=== PATIENT | male | born 1935 | race Caucasian/White ===

== ENCOUNTER 2017-04-30 11:26 | Emergency (ER) | payer MEDICARE ==
[~2017-04-30] VITALS: Ht 185.4 cm; Wt 93.6 kg
[~2017-04-30 11:26] MED LIST: ALLOPURINOL300 MG PO; ANTIVERT 25MG25 MG PO; ASPIR-LOW81 MG PO; ASPIR-LOX325 MG PO; FINASTERIDE; HYTRIN2 MG PO; INDOMETHACIN25 MG PO; LEVOTHYROXIN0.075 MG PO; LEVOXYL0.2 MG PO; MICRO-K 1010 MEQ PO; NEPHRO-VITE1 TA1 PO; NORCO 325 MG-51 TAB PO; PRILOSEC 20MG20 MG PO; SAW PALMETTO; TIAZAC360 MG PO
[2017-04-30 11:28] VITALS: TEMP 97.7
[2017-04-30 12:25] LABS: BASO # 0.1 (0.0-0.2); BASO % 0.9 % (0.0-2.0); EOS # 0.1 (0.0-0.7); EOS % 1.4 % (0-4.0); GRAN # 5.5 (1.4-6.5); GRAN % 70.9 % (42.2-75.2); HEMATOCRIT 45.9 % (42.0-52.0); HEMOGLOBIN 16.3 g/dl (13.5-18.0); LYMPH # 1.6 (1.2-3.4); LYMPH % 20.2 % (20.0-51.0); MEAN CELL VOLUME 91 fl (80.0-100.0); MEAN CORPUSCULAR HEMOGLOBIN 32 pg (27.0-31.0); MEAN CORPUSCULAR HGB CONC 36 g/dl (33.0-37.0); MEAN PLATELET VOLUME 10.1 fl (7.4-10.4); MONO # 0.5 (0.1-0.6); MONO % 6.2 % (1.7-9.3); PLATELET COUNT 144 K/mm3 (130-400); RED BLOOD COUNT 5.03 M/mm3 (4.20-5.60); REDCELL DISTRIBUTION WIDTH-CV 12.6 % (11.5-14.5); WHITE BLOOD COUNT 7.8 K/mm3 (4.8-10.8)
[2017-04-30 12:38] LABS: ADJUSTED CALCIUM 9.6 mg/dL (8.4-10.2); ALANINE AMINOTRANSFERASE 25 U/L (21-72); ALBUMIN 4.2 gm/dL (3.5-5.0); ALKALINE PHOSPHATASE 72 U/L (50-136); ANION GAP 10 mmol/L (7-16); BILIRUBIN,TOTAL 1.5 mg/dL (0.0-1.0); BLOOD UREA NITROGEN 16 mg/dL (9-20); CALCIUM 9.8 mg/dL (8.4-10.2); CARBON DIOXIDE 23 mmol/L (22-30); CHLORIDE 103 mmol/L (98-107); CREATININE, serum 0.76 mg/dL (0.66-1.25); GLUCOSE 99 mg/dL (74-106); LIPASE 55 U/L (23-300); POTASSIUM 4.4 mmol/L (3.4-5.0); SODIUM 136 mmol/L (137-145); TOTAL PROTEIN 7.2 gm/dL (6.4-8.2)
[2017-04-30 12:50] LABS: B-TYPE NATRIURETIC PEPTIDE 108 pg/mL (0-450)
[2017-04-30 12:51] LABS: TROPONIN-I < 0.012 ng/mL (0.000-0.034)
[2017-04-30] MEDS ORDERED: PROSCAR 5MG5 MG PO ×2 (13:05→16:01)
[2017-04-30 15:07] LABS: THYROID STIMULATING HORMONE 0.118 uIU/mL (0.465-4.680)
[2017-04-30] MEDS ORDERED: TIAZAC360 MG PO (16:00)
[2017-04-30] MEDS ORDERED: ZYLOPRIM 300MG300 MG PO (16:00)
[2017-04-30] MEDS ORDERED: MOTRIN 600600 MG/TAB PO (16:01)
[2017-04-30] MEDS ORDERED: NORCO 325 MG-51 TAB PO (16:01)
[2017-04-30] MEDS ORDERED: SYNTHROID 0.10.15 MG PO (16:02)
[2017-04-30] MEDS ORDERED: ZESTRIL 10MG10 MG PO (16:03)
[2017-04-30] MEDS ORDERED: PRILOSEC 20MG20 MG PO (16:03)
[2017-04-30] MEDS ORDERED: K-DUR20 MEQ PO (16:04)
[2017-04-30] MEDS ORDERED: TIAZAC180 MG PO (16:20)
[2017-04-30] MEDS ORDERED: ANTIVERT 25MG25 MG PO (16:20)
[2017-04-30 16:44] VITALS: BP 150/90; PULSE 53
== END 2017-04-30 16:47 | disposition home or self-care (01) ==
LOC: COL.ER 11:26
PROVIDERS: Emergency Medicine
DX: H81.10 Benign paroxysmal vertigo, unspecified ear (principal); R00.1 Bradycardia, unspecified; I10 Essential (primary) hypertension; E03.9 Hypothyroidism, unspecified
CPT/HCPCS: Q9967

== ENCOUNTER 2018-11-11 08:32 | Emergency (ER) | payer MEDICARE ==
[~2018-11-11] VITALS: Ht 182.9 cm; Wt 95.5 kg
[~2018-11-11 08:32] MED LIST changes: +K-DUR20 MEQ PO; +MOTRIN 600600 MG/TAB PO; +PROSCAR 5MG5 MG PO; +SYNTHROID 0.10.15 MG PO; +TIAZAC180 MG PO; +ZESTRIL 10MG10 MG PO; +ZYLOPRIM 300MG300 MG PO
[2018-11-11 08:33] VITALS: TEMP 99.2
[2018-11-11 09:08] LABS: COLLECTION METHOD CLEAN CATCH
[2018-11-11 09:13] LABS: PH 7 (5-8); SQUAMOUS EPITHELIAL 0-2 /hpf; URINE APPEARANCE Clear; URINE BACTERIA None Seen /hpf; URINE BILIRUBIN Negative (NEGATIVE); URINE BLOOD Negative (NEGATIVE); URINE COLOR Yellow; URINE GLUCOSE Negative (NEGATIVE); URINE KETONE Negative (NEGATIVE); URINE LEUKOCYTE ESTERASE Negative (NEGATIVE); URINE NITRATE Negative (NEGATIVE); URINE PROTEIN(semi-quant) Negative (NEGATIVE); URINE RBC 0-2 /hpf; URINE UROBILINOGEN Negative (NEGATIVE)
[2018-11-11 09:40] LABS: BASO # 0.1 (0.0-0.2); BASO % 0.5 % (0.0-2.0); EOS % 0.1 % (0-4.0); GRAN # 8.3 (1.4-6.5); GRAN % 84.1 % (42.2-75.2); HEMATOCRIT 41.5 % (42.0-52.0); HEMOGLOBIN 14.4 g/dl (13.5-18.0); LYMPH % 9.9 % (20.0-51.0); MEAN CELL VOLUME 91 fl (80.0-100.0); MEAN CORPUSCULAR HEMOGLOBIN 31 pg (27.0-31.0); MEAN CORPUSCULAR HGB CONC 35 g/dl (33.0-37.0); MONO # 0.5 (0.1-0.6); PLATELET COUNT 213 K/mm3 (130-400); RED BLOOD COUNT 4.58 M/mm3 (4.20-5.60); REDCELL DISTRIBUTION WIDTH-CV 12.9 % (11.5-14.5)
[2018-11-11 09:51] LABS: ALANINE AMINOTRANSFERASE 17 U/L (21-72); ALBUMIN 4.1 gm/dL (3.5-5.0); ALKALINE PHOSPHATASE 72 U/L (50-136); ANION GAP 9 mmol/L (7-16); AST,SGOT 19 U/L (15-37); BILIRUBIN,TOTAL 1.5 mg/dL (0.0-1.0); BLOOD UREA NITROGEN 21 mg/dL (9-20); CALCIUM 9.3 mg/dL (8.4-10.2); CARBON DIOXIDE 25 mmol/L (22-30); CHLORIDE 104 mmol/L (98-107); CREATININE, serum 0.93 (0.66-1.25); GLUCOSE 116 mg/dL (74-106); POTASSIUM 4.1 mmol/L (3.4-5.0); SODIUM 139 mmol/L (137-145); TOTAL PROTEIN 7.2 gm/dL (6.4-8.2)
[2018-11-11 10:05] LABS: TROPONIN-I < 0.012 ng/mL (0.000-0.035)
[2018-11-11 12:18] VITALS: BP 168/97; PULSE 56
== END 2018-11-11 12:40 | disposition home or self-care (01) ==
LOC: COL.ER 08:32
PROVIDERS: Emergency Medicine
DX: R41.0 Disorientation, unspecified (principal); I10 Essential (primary) hypertension; E03.9 Hypothyroidism, unspecified; M19.90 Unspecified osteoarthritis, unspecified site
CPT/HCPCS: J2405; J7030

== ENCOUNTER 2018-12-27 10:38 | Observation (INO) | payer MEDICARE ==
[~2018-12-27] VITALS: Ht 185.4 cm; Wt 93.3 kg
[~2018-12-27 10:38] MED LIST changes: -SYNTHROID 0.10.15 MG PO; +SYNTHROID0.175 MG PO
[2018-12-27] MEDS ORDERED: COZAAR 25MG25 MG/TAB PO (11:04)
[2018-12-27] MEDS ORDERED: ARICEPT 5MG PO (11:04)
[2018-12-27] MEDS ORDERED: B-121000 MCG PO (11:05)
[2018-12-27] MEDS ORDERED: VITAMIN D 1001000 IU (11:05)
[2018-12-27] MEDS ORDERED: VITAMIN B COMPL1 T16 (11:05)
[2018-12-27 11:19] LABS: BASO # 0.1 (0.0-0.2); BASO % 0.9 % (0.0-2.0); EOS # 0.2 (0.0-0.7); EOS % 2.6 % (0-4.0); GRAN # 4.8 (1.4-6.5); HEMATOCRIT 43.2 % (42.0-52.0); HEMOGLOBIN 15.1 g/dl (13.5-18.0); LYMPH % 14.4 % (20.0-51.0); MEAN CELL VOLUME 90 fl (80.0-100.0); MEAN CORPUSCULAR HEMOGLOBIN 32 pg (27.0-31.0); MEAN CORPUSCULAR HGB CONC 35 g/dl (33.0-37.0); MONO # 0.7 (0.1-0.6); MONO % 9.8 % (1.7-9.3); PLATELET COUNT 203 K/mm3 (130-400); REDCELL DISTRIBUTION WIDTH-CV 12.8 % (11.5-14.5)
[2018-12-27 11:33] LABS: ALANINE AMINOTRANSFERASE 16 U/L (21-72); ALBUMIN 3.8 gm/dL (3.5-5.0); ALKALINE PHOSPHATASE 77 U/L (50-136); ANION GAP 10 mmol/L (7-16); AST,SGOT 19 U/L (15-37); BLOOD UREA NITROGEN 21 mg/dL (9-20); CALCIUM 9.3 mg/dL (8.4-10.2); CARBON DIOXIDE 23 mmol/L (22-30); CHLORIDE 106 mmol/L (98-107); CREATININE, serum 0.87 (0.66-1.25); GLUCOSE 131 mg/dL (74-106); MAGNESIUM 2.1 mg/dL (1.6-2.3); PHOSPHOROUS 2.8 mg/dL (2.5-4.5); POTASSIUM 3.9 mmol/L (3.4-5.0); SODIUM 139 mmol/L (137-145)
[2018-12-27 11:47] LABS: TROPONIN-I < 0.012 ng/mL (0.000-0.035)
[2018-12-27 13:53] VITALS: BP 144/85; PULSE 63; TEMP 97.8
[2018-12-27 13:58] VITALS: BP 144/85; PULSE 63; TEMP 97.8
[2018-12-27 15:40] VITALS: BP 132/82; PULSE 60; TEMP 98.2
[2018-12-27 16:54] VITALS: BP 132/82; PULSE 60; TEMP 98.2
--- NOTE | 2018-12-27 17:10 | NUR ---
Pt up to unit from ED. Pt reports dizziness when he tilts his head foward. Pt had intermittent episodes of AFib down in the ED. Pt has telemetry in place and running NSR. Pt rates pain 3/10 in back/ankles/knees mostly related to arthritis per pt. Pt has frederick prominence enlarged on left ankle and pt reports may have been broken or it is more gout related but unable to get a clear explanation. Pt IV patent from ED and no redness or infiltration noted. Pt has call light in reacha and denies SOB or chest pain. Pt calls for help to get up.
[2018-12-27 18:55] VITALS: BP 112/75; PULSE 69; TEMP 98.5
--- NOTE | 2018-12-27 19:20 | NUR ---
Pt report given to Adrianne JOHNSTON.
--- NOTE | 2018-12-27 19:30 | NUR ---
Patient report received from PRESTON Iglesias at shift change. Upon assessment patient is resting comfortably in bed watching tv. Patient is alert and oriented x 3. Denies pain or n/v. Patient denies having any dizziness or palpations at this time. No other needs reported/observed.
[2018-12-27 23:12] VITALS: BP 128/75; PULSE 65; TEMP 98.5
[2018-12-28] VITALS (8 sets, daily range): BP systolic 114–158; BP diastolic 69–88; PULSE 58–74; TEMP 97.5–98.5
--- NOTE | 2018-12-28 05:41 | NUR ---
Patient report given to PRESTON Rangel. Patient has rested comfortably throughout the night. Denies any dizziness or palpatations in night.
--- NOTE | 2018-12-28 11:44 | NUR ---
Pt was seen by Selvin with physical therapy and participated in physical manueuvers to decrease vertigo and Selvin reported after second treatment pt had shown some progress with decreasing his vertigo.
--- NOTE | 2018-12-28 13:41 | NUR ---
Plan: Plan to return home with Mirta as care support. Assess: Patient reports that he is fairly independent but also cares for him. Pt indicated that there is no Adv-dir and PCP is Dr. Babcock. Patient denies any DME's use reg-has a cane but does not use. Patient decline HHS. Action: Family will transport home. No addtional needs noted.
--- NOTE | 2018-12-28 14:10 | NUR ---
Pt sitting at side of bed and reports feeling good right now "better than yesterday". Pt seen by and new orders given. Pt to have MRI and cardio consult 12/29/18. Pt denies SOB or chest pain. Pt remains NSR. Dr. Sher explained that there is no evidence of pt in AFIB while in ER pt was tachycardic per EKG. Pt IV patent and no redness or infiltration noted. Pt started on Losartan per Dr. Santos for heightened BP. Pt has call light in reach and spouse at bedside.
--- NOTE | 2018-12-28 19:41 | NUR ---
pt report given to Ambar martin
--- NOTE | 2018-12-28 20:10 | NUR ---
Shift assessment complete. Pt resting in bed, awake, a&o at this time, cooperative c cares. Pt denies pain or any other c/o. INT patent. Tele in place. Pt denies needs. Call light in reach, bed alarm on. Will continue to monitor.
[2018-12-29 00:22] VITALS: BP 104/64; PULSE 67; TEMP 98.8
[2018-12-29 05:16] VITALS: BP 136/80; PULSE 64; TEMP 98.3
--- NOTE | 2018-12-29 05:56 | NUR ---
Pt resting in bed, condition unchanged. Pt has rested well this shift c very few needs. C/o "arthritis" pain this am, provided c PRN Motrin per pt req. Pt denies any other c/o or needs. Call light in reach.
[2018-12-29 07:49] VITALS: BP 128/70; PULSE 62; TEMP 98
--- NOTE | 2018-12-29 09:36 | NUR ---
Assessment completed, alert/oriented, vital signs stable, denies pain or discomfort, lungs CTA/ no resp.difficulty, heart RRR/distal pulses are palpalbe, denies any more dizziness or vertigo with position changes, he feels like PT exercises have helped him, Cardiology consulted and have ordered ECHO, he will also have brain MRI/ MRA neck, possible discharge later today pending test results
--- NOTE | 2018-12-29 11:33 | NUR ---
First visit from the petrographer. No needs right now.
[2018-12-29 11:51] VITALS: BP 122/78; PULSE 58; TEMP 98.1
--- NOTE | 2018-12-29 15:34 | NUR ---
Discharge instructions reviewed with the patient, instructed to follow up with PCP/ENT/Cardiology/Neurology as we have scheduled for him, instructed to continue previous home meds and that their are NO new meds or med changes, removed his IV and tele, he is leaving with his , VENEER STOCK GRADER escorted them out the door
== END 2018-12-29 15:45 | disposition home or self-care (01) ==
LOC: COL.ER 10:38 → MEDICAL 12:16
PROVIDERS: Emergency Medicine; ADMIT Internal Medicine
DX: R42 Dizziness and giddiness (principal); I47.1 Supraventricular tachycardia; Z86.73 Personal history of transient ischemic attack (TIA), and cerebral infarction without residual deficits; I10 Essential (primary) hypertension; F03.90 Unspecified dementia, unspecified severity, without behavioral disturbance, psychotic disturbance, mood disturbance, and anxiety; N40.0 Benign prostatic hyperplasia without lower urinary tract symptoms; M10.9 Gout, unspecified; J44.9 Chronic obstructive pulmonary disease, unspecified; M46.82 Other specified inflammatory spondylopathies, cervical region; M13.862 Other specified arthritis, left knee; M13.861 Other specified arthritis, right knee; M13.872 Other specified arthritis, left ankle and foot; M13.871 Other specified arthritis, right ankle and foot; Z92.3 Personal history of irradiation; E89.0 Postprocedural hypothyroidism
CPT/HCPCS: A9585; G0378

== ENCOUNTER 2019-03-22 10:01 | Emergency (ER) | payer MEDICARE ==
[~2019-03-22] VITALS: Ht 185.4 cm; Wt 95.9 kg
[~2019-03-22 10:01] MED LIST changes: +ARICEPT 5MG PO; +B-121000 MCG PO; +COZAAR 25MG25 MG/TAB PO; +VITAMIN B COMPL1 T16; +VITAMIN D 1001000 IU
[2019-03-22 10:02] VITALS: TEMP 97.7
[2019-03-22 10:30] VITALS: BP 148/85
[2019-03-22 10:32] LABS: COLLECTION METHOD CLEAN CATCH
[2019-03-22 10:37] LABS: BASO # 0.1 (0.0-0.2); BASO % 0.9 % (0.0-2.0); EOS # 0.2 (0.0-0.7); EOS % 1.6 % (0-4.0); GRAN % 76.7 % (42.2-75.2); HEMATOCRIT 42.2 % (42.0-52.0); HEMOGLOBIN 14.4 g/dl (13.5-18.0); LYMPH % 10.7 % (20.0-51.0); MEAN CELL VOLUME 90 fl (80.0-100.0); MEAN CORPUSCULAR HEMOGLOBIN 31 pg (27.0-31.0); MEAN CORPUSCULAR HGB CONC 34 g/dl (33.0-37.0); MEAN PLATELET VOLUME 9.9 fl (7.4-10.4); MONO # 0.9 (0.1-0.6); MONO % 9.7 % (1.7-9.3); PLATELET COUNT 194 K/mm3 (130-400); RED BLOOD COUNT 4.67 M/mm3 (4.20-5.60); REDCELL DISTRIBUTION WIDTH-CV 13.3 % (11.5-14.5)
[2019-03-22 10:41] LABS: MUCOUS Present /lpf; PH 6 (5-8); SQUAMOUS EPITHELIAL 0-2 /hpf; URINE APPEARANCE Clear; URINE BACTERIA None Seen /hpf; URINE BILIRUBIN Negative (NEGATIVE); URINE BLOOD Negative (NEGATIVE); URINE COLOR Yellow; URINE GLUCOSE Negative (NEGATIVE); URINE KETONE Negative (NEGATIVE); URINE LEUKOCYTE ESTERASE Negative (NEGATIVE); URINE NITRATE Negative (NEGATIVE); URINE PROTEIN(semi-quant) Negative (NEGATIVE); URINE RBC 0-2 /hpf; URINE UROBILINOGEN Negative (NEGATIVE)
[2019-03-22 10:46] LABS: CALCIUM 9.1 mg/dL (8.4-10.2); CREATININE, serum 1.01 (0.66-1.25); POTASSIUM 3.7 mmol/L (3.4-5.0)
[2019-03-22 12:12] VITALS: PULSE 67
== END 2019-03-22 12:09 | disposition home or self-care (01) ==
LOC: COL.ER 10:01
PROVIDERS: Emergency Medicine
DX: S39.012A Strain of muscle, fascia and tendon of lower back, initial encounter (principal); W19.XXXA Unspecified fall, initial encounter; Y92.009 Unspecified place in unspecified non-institutional (private) residence as the place of occurrence of the external cause
CPT/HCPCS: J1885; J7030; Q9967

== ENCOUNTER → 2019-04-09 | Outpatient (CLI) | payer MEDICARE | LOC: COL.RAD 09:00 | DX: M47.816 Spondylosis without myelopathy or radiculopathy, lumbar region (principal); M43.17 Spondylolisthesis, lumbosacral region; M48.07 Spinal stenosis, lumbosacral region; Z91.81 History of falling ==

== ENCOUNTER 2019-06-09 12:39 | Inpatient (IN) | payer MEDICARE ==
[~2019-06-09] VITALS: Ht 185.4 cm; Wt 93.4 kg
[~2019-06-09 12:39] MED LIST changes: -VITAMIN B COMPL1 T16; +VITAMIN B COMPL1 T16 PO; -VITAMIN D 1001000 IU; +VITAMIN D 1001000 IU PO
[2019-06-17] VITALS (10 sets, daily range): BP systolic 130–149; BP diastolic 59–89; PULSE 7–80; TEMP 97.9–98
--- NOTE | 2019-06-17 09:30 | NUR ---
The patient ambulated back to [place] [facility] independently using a steady gait and appeared to tolerate the activity well. The patient appears alert and oriented at this time. Consent signed with verbalized understanding of scheduled procedure and consent for blood or blood products. Vital signs obtained. Heart Reg. Lungs clear. Bowel sounds audible. The patient's was brought back to be at his bedside. Call light is within reach. The patient denies any needs at this time. Will continue to monitor the patient.
[2019-06-17] MEDS ORDERED: COZAAR100 MG PO (09:36)
[2019-06-17] MEDS ORDERED: ANTIVERT 25MG25 MG PO (09:37)
[2019-06-17] MEDS ORDERED: NORVASC2.5 MG PO (09:40)
[2019-06-17] MEDS ORDERED: LOPRESSOR 225 MG/TAB PO (09:41)
[2019-06-17] MEDS ORDERED: PROAIR HFA0.09 MG/AC IH (09:42)
--- NOTE | 2019-06-17 16:17 | NUR ---
PT TO ROOM 344 PER BED WITH REPORT FROM LEONOR JOHNSTON PACU @1540. PT IS DROWSEY BUT AROUSABLE. LUNGS COARSE. HYPO BOWEL SOUNDS. 5 ROBOTIC INCISIONS WITH CHRISTOPHER SET AND MIDLINE WITH MEIPAD. IV TO PUMP.
[2019-06-18] VITALS (8 sets, daily range): BP systolic 108–123; BP diastolic 58–67; PULSE 53–65; TEMP 97.5–98.9
--- NOTE | 2019-06-18 01:53 | NUR ---
Patient has rested well throughout the night. Noted to have 5 lap sites with swiftset, and a transverse incision to lower abdomen covered with gauze. Patient states his pain is minimal and has been tolerating without PRN pain medication. Fernandes draining clear yellow urine. Patient tolerating PO fluids. INT to right forearm. Will continue to monitor patient.
[2019-06-18 06:19] LABS: BASO % 0.2 % (0.0-2.0); GRAN # 10.1 (1.4-6.5); GRAN % 84.2 % (42.2-75.2); LYMPH # 1.1 (1.2-3.4); LYMPH % 8.8 % (20.0-51.0); MEAN CELL VOLUME 90 fl (80.0-100.0); MEAN CORPUSCULAR HEMOGLOBIN 29 pg (27.0-31.0); MEAN CORPUSCULAR HGB CONC 32 g/dl (33.0-37.0); MEAN PLATELET VOLUME 10.1 fl (7.4-10.4); MONO # 0.8 (0.1-0.6); MONO % 6.3 % (1.7-9.3); PLATELET COUNT 257 K/mm3 (130-400); RED BLOOD COUNT 3.82 M/mm3 (4.20-5.60); REDCELL DISTRIBUTION WIDTH-CV 13.3 % (11.5-14.5)
[2019-06-18 06:21] LABS: HEMATOCRIT 34.2 % (42.0-52.0)
[2019-06-18 06:30] LABS: CALCIUM 8.6 mg/dL (8.4-10.2); CREATININE, serum 0.98 (0.66-1.25); POTASSIUM 4.6 mmol/L (3.4-5.0)
--- NOTE | 2019-06-18 09:30 | NUR ---
BRENDA and wastewater operator met with the patient to discuss discharge plan. The patient lives outside of [place] with his , Tere (ph#[phone]). He reports independence with ADLs and has a cane. The patient's PCP is Dr. Trey Babcock and he receives his medications at [facility]. He reports no difficulties obtaining his meds. The patient does not have advanced directives completed, but he was interested in obtaining a form for DPOA-HC. BRENDA provided. The patient plans to return home with his upon discharge. No additional needs at this time.
--- NOTE | 2019-06-18 09:33 | NUR ---
First visit from the radio repairer domestic. No needs right now.
--- NOTE | 2019-06-18 18:13 | NUR ---
Patient was resting in room when arrived. Up and ambulated 100 ft around unit. no complaints of pain. has been in room all afternoon. Visitors arrived at 1700. Reported off to Patricia JOHNSTON.
--- NOTE | 2019-06-18 19:34 | NUR ---
Patient has been doing well today. He has ambulated in the hallways. Denies pain and nausea. 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 He is tolerating diet well. he has voided once this afternoon and knows we need to measure his urine output. No other changes at this time. He ambulated 3 times today and made several laps. Call light within reach.
--- NOTE | 2019-06-19 02:30 | NUR ---
Patient has rested well throughout the night. Patient states pain is well controlled with current regimen. No PRN medication required this shift. Patient up with stand-by assist to restroom. Noted to have incontinent loose stool this shift. Pamela-care provided. Will continue to provide incontinent care and monitor.
[2019-06-19 05:13] VITALS: BP 115/68; PULSE 58; TEMP 98.6
[2019-06-19 07:45] VITALS: BP 119/70; PULSE 62; TEMP 97.8
--- NOTE | 2019-06-19 08:20 | NUR ---
Pt sitting on edge of bed stated he is waiting for breakfast. VSS. No sign of distress. Call light within reach.
[2019-06-19 10:14] LABS: HEMATOCRIT 34.5 % (42.0-52.0)
[2019-06-19 12:01] VITALS: BP 117/66; PULSE 57; TEMP 98.8
[2019-06-19 15:19] VITALS: BP 128/67; PULSE 71; TEMP 97.6
--- NOTE | 2019-06-19 18:00 | NUR ---
Patient has been doing well today. He has been up ambulating in the hallways. Denies pain and nausea. He is tolerating general diet well. Offered patient a shower but he did not want one today. He did get cleaned up with the student though. His is at bedside. No other changes at this time. Call light within reach.
[2019-06-19 20:00] VITALS: BP 127/72; PULSE 71; TEMP 98.7
--- NOTE | 2019-06-19 21:00 | NUR ---
Patient takes HS meds without problem. Lap sites to abdomen glued and dry. Reports having stools and urinating without problem.
[2019-06-20 00:19] VITALS: BP 121/69; PULSE 72; TEMP 99
--- NOTE | 2019-06-20 02:45 | NUR ---
Takes scheduled ES Tylenol at this time. No concerns offered at this time.
[2019-06-20 04:07] VITALS: BP 123/72; PULSE 67; TEMP 98.3
--- NOTE | 2019-06-20 06:00 | NUR ---
AM MED GIVEN AT THIS TIME. PATIENT HOPING TO GO HOME TODAY.
[2019-06-20 08:19] VITALS: BP 117/75; PULSE 69; TEMP 98.3
--- NOTE | 2019-06-20 08:34 | NUR ---
Pt doing well this morning. He is sitting up and has completed his breakfast. Minimal pain complaints at this time. He is hoping to go home today. He is independent in his room. No needs at this time, will continue to monitor.
[2019-06-20] MEDS ORDERED: NORCO 325 MG-51 TAB PO (10:12)
--- NOTE | 2019-06-20 13:40 | NUR ---
Pt son and have arrived. Reviewed discharge instructions with them at this time. All questions answered. INT removed from left wrist. Pt escorted out at this time
== END 2019-06-20 13:41 | disposition home or self-care (01) | DRG 330 ==
LOC: INPTSU 06-17 08:33 → SURG 06-17 11:30
PROVIDERS: ADMIT Surgery
PROC: 0DNU4ZZ Release Omentum, Percutaneous Endoscopic Approach (ICD-10-PCS; 2019-06-17)
PROC: 8E0W4CZ Robotic Assisted Procedure of Trunk Region, Percutaneous Endoscopic Approach (ICD-10-PCS; 2019-06-17)
PROC: 0DTF4ZZ Resection of Right Large Intestine, Percutaneous Endoscopic Approach (ICD-10-PCS; principal; 2019-06-17 11:30)
DX: C18.3 Malignant neoplasm of hepatic flexure (principal); C18.7 Malignant neoplasm of sigmoid colon
CPT/HCPCS: A4314; A9284; J0330; J0690; J1100; J1650; J1885; J2405; J2704; J3010; J7120

== ENCOUNTER → 2019-06-11 | Outpatient (CLI) | payer MEDICARE ==
[~2019-06-11] MED LIST changes: +VITAMIN B COMPL1 T16; -VITAMIN B COMPL1 T16 PO; +VITAMIN D 1001000 IU; -VITAMIN D 1001000 IU PO
== END ==
LOC: COL.RAD 09:35
DX: C18.9 Malignant neoplasm of colon, unspecified (principal); J43.9 Emphysema, unspecified; Z98.890 Other specified postprocedural states
CPT/HCPCS: Q9967

== ENCOUNTER 2019-07-15 17:57 | Inpatient (IN) | payer MEDICARE ==
[~2019-07-15] VITALS: Ht 182.9 cm; Wt 88.9 kg
[~2019-07-15 17:57] MED LIST changes: +COZAAR100 MG PO; +LOPRESSOR 225 MG/TAB PO; +NORVASC2.5 MG PO; +PROAIR HFA0.09 MG/AC IH; -VITAMIN B COMPL1 T16; +VITAMIN B COMPL1 T16 PO; -VITAMIN D 1001000 IU; +VITAMIN D 1001000 IU PO
[2019-07-15 18:41] LABS: BASO # 0.2 (0.0-0.2); EOS # 0.1 (0.0-0.7); EOS % 0.7 % (0-4.0); GRAN # 12.9 (1.4-6.5); GRAN % 83.1 % (42.2-75.2); HEMATOCRIT 44.1 % (42.0-52.0); HEMOGLOBIN 14.2 g/dl (13.5-18.0); LYMPH # 1.5 (1.2-3.4); LYMPH % 9.7 % (20.0-51.0); MEAN CELL VOLUME 87 fl (80.0-100.0); MEAN CORPUSCULAR HEMOGLOBIN 28 pg (27.0-31.0); MEAN CORPUSCULAR HGB CONC 32 g/dl (33.0-37.0); MEAN PLATELET VOLUME 10.1 fl (7.4-10.4); MONO # 0.8 (0.1-0.6); PLATELET COUNT 323 K/mm3 (130-400); RED BLOOD COUNT 5.06 M/mm3 (4.20-5.60); REDCELL DISTRIBUTION WIDTH-CV 13.9 % (11.5-14.5)
[2019-07-15 18:47] LABS: PROTHROMBIN TIME 11.6 SECONDS (9.7-12.8)
[2019-07-15 18:50] LABS: PARTIAL THROMBOPLASTIN TIME 28.7 SECONDS (26.0-37.0)
[2019-07-15 18:54] LABS: ALBUMIN 4.8 gm/dL (3.5-5.0); CALCIUM 9.9 mg/dL (8.4-10.2); CREATININE, serum 1.07 (0.66-1.25); POTASSIUM 4.3 mmol/L (3.4-5.0); TOTAL PROTEIN 8.6 gm/dL (6.4-8.2)
[2019-07-15 19:14] LABS: TROPONIN-I 0.362 ng/mL (0.000-0.035)
--- NOTE | 2019-07-15 21:05 | NUR ---
Patient arrived to room via stretcher; alert and oriented. Able to transfer from ER to ICU bed with stand by assist only. Shortness of breath reported with exertion but denies with rest. Attached to all monitors; 02 94% on 3L.
[2019-07-15 21:35] VITALS: BP 115/87; PULSE 98; TEMP 97.5
[2019-07-15 22:20] LABS: TROPONIN-I 3 HR POST INITIAL 0.489 ng/mL (0.000-0.034)
[2019-07-15 22:30] LABS: TSH w REFLEX 1.37 uIU/mL (0.465-4.680)
[2019-07-15] MEDS ORDERED: NAMENDA 10MG TA10 MG PO (23:23)
[2019-07-15] MEDS ORDERED: PEPCID 20MG TAB20 MG PO (23:37)
[2019-07-15] MEDS ORDERED: FLOVENT 110MCG7.9 GM IH (23:39)
[2019-07-16] VITALS (626 sets, daily range): BP systolic 110–135; BP diastolic 74–91; PULSE 74–82; TEMP 97.4–98.4; O2SAT 75–98
[2019-07-16] MEDS ORDERED: TYLENOL 325MG325 MG PO (00:09)
[2019-07-16 01:37] LABS: HEMATOCRIT 35.4 % (42.0-52.0); HEMOGLOBIN 11.7 g/dl (13.5-18.0)
--- NOTE | 2019-07-16 02:18 | NUR ---
FLOVENT GIVEN BID AT 0700 AND 1900. THERFORE UNTIL PHARMACY CHANGES TIME OF FLOVENT 110 INHALER TIMES IT LOKS IF A TREATMENT WAS MISSED AT 0052. MEDICATION IS NOT DUE AT THIS TIME. PT IS IN NO DISTRESS AT THIS TIME
--- NOTE | 2019-07-16 03:00 | NUR ---
Patient resting in bed with eyes shut; no concerns at this time.
[2019-07-16 06:08] LABS: BASO # 0.1 (0.0-0.2); BASO % 1.1 % (0.0-2.0); EOS # 0.2 (0.0-0.7); EOS % 1.6 % (0-4.0); GRAN # 7.5 (1.4-6.5); GRAN % 71.3 % (42.2-75.2); HEMOGLOBIN 11.4 g/dl (13.5-18.0); LYMPH # 1.7 (1.2-3.4); LYMPH % 15.9 % (20.0-51.0); MEAN CELL VOLUME 87 fl (80.0-100.0); MEAN CORPUSCULAR HEMOGLOBIN 28 pg (27.0-31.0); MEAN CORPUSCULAR HGB CONC 33 g/dl (33.0-37.0); MEAN PLATELET VOLUME 10.3 fl (7.4-10.4); MONO % 9.7 % (1.7-9.3); PLATELET COUNT 252 K/mm3 (130-400); RED BLOOD COUNT 4.03 M/mm3 (4.20-5.60); REDCELL DISTRIBUTION WIDTH-CV 13.9 % (11.5-14.5)
[2019-07-16 06:13] LABS: HEMATOCRIT 35.1 % (42.0-52.0)
[2019-07-16 06:25] LABS: CALCIUM 8.9 mg/dL (8.4-10.2); CREATININE, serum 0.92 (0.66-1.25); POTASSIUM 4.2 mmol/L (3.4-5.0)
[2019-07-16 06:51] LABS: TROPONIN-I 0.408 ng/mL (0.000-0.035)
--- NOTE | 2019-07-16 07:11 | NUR ---
Hospitalist not notified of critical troponin as trending down.
--- NOTE | 2019-07-16 10:01 | NUR ---
Initial visit; Patient thanked Gre[employer] Oiler for looking in on him and offering God's blessings. Patient has family who will contact his taoism family.
[2019-07-16 12:53] LABS: HEMATOCRIT 37.8 % (42.0-52.0); HEMOGLOBIN 12.1 g/dl (13.5-18.0)
--- NOTE | 2019-07-16 16:47 | NUR ---
Medical Office Technologist met with patient and patient's , Tere (ph#[phone]) to discuss discharge planning. Patient lives outside of [place] with his . Patient sees Dr. Babcock for primary care and obtains medications from [facility] with no difficulties. Patient uses a cane and reports independence with ADLS. Patient does not have Advance Directives and wanted to set up DPOA-HC. SW assisted patient in setting up DPOA-HC and patient designated his Tere and son, Yoandy. BRENDA and RNDanelle provided witness signature. BRENDA provided original and copies to patient and placed copy in chart. SW to continue to follow.
[2019-07-16 18:37] LABS: HEMATOCRIT 37.5 % (42.0-52.0)
--- NOTE | 2019-07-16 21:00 | NUR ---
Assessment complete; Patient alert and follows basic commands appropriately, however is not oriented to time or place. Unable to re-call where he is or why he was hospitalized. Patient had been able to answer these questions appropriately when admitted over night. Neuro checks within normal limits. Called to ask if he has confusion sometimes . confimed that he does have episodes of confusion at times and will not be able to answer questions appropriatly or at all sometimes. Attempted to re-orient patient at this time. Will continue to monitor.
[2019-07-17] VITALS (636 sets, daily range): BP systolic 117–137; BP diastolic 79–87; PULSE 67–100; TEMP 97.4–98.4; O2SAT 81–100
--- NOTE | 2019-07-17 02:00 | NUR ---
Resting in bed at this time. Patient confused and unable to tell nurse why he came to the hospital. Confusion has not increased or changed during shift. Attempted to re-orient at this time. Able to follow all commands and no neurological deficits noted. Will continue to monitor.
[2019-07-17 03:21] LABS: COLLECTION METHOD CLEAN CATCH
[2019-07-17 03:26] LABS: MUCOUS Present /lpf; PH 5 (5-8); SQUAMOUS EPITHELIAL None Seen /hpf; URINE APPEARANCE Clear; URINE BACTERIA None Seen /hpf; URINE BILIRUBIN Negative (NEGATIVE); URINE BLOOD Negative (NEGATIVE); URINE COLOR Yellow; URINE GLUCOSE Negative (NEGATIVE); URINE KETONE Negative (NEGATIVE); URINE LEUKOCYTE ESTERASE Negative (NEGATIVE); URINE NITRATE Negative (NEGATIVE); URINE PROTEIN(semi-quant) Negative (NEGATIVE); URINE RBC 0-2 /hpf; URINE UROBILINOGEN Negative (NEGATIVE)
--- NOTE | 2019-07-17 05:45 | NUR ---
Hospitalist updated regarding patients confusion this shift. Order obtained for head CT.
[2019-07-17 06:20] LABS: HEMOGLOBIN 10.4 g/dl (13.5-18.0); MEAN CELL VOLUME 89 fl (80.0-100.0); MEAN CORPUSCULAR HEMOGLOBIN 28 pg (27.0-31.0); MEAN CORPUSCULAR HGB CONC 32 g/dl (33.0-37.0); MEAN PLATELET VOLUME 10.5 fl (7.4-10.4); PLATELET COUNT 215 K/mm3 (130-400); RED BLOOD COUNT 3.67 M/mm3 (4.20-5.60); REDCELL DISTRIBUTION WIDTH-CV 13.9 % (11.5-14.5)
[2019-07-17 06:30] LABS: HEMATOCRIT 32.5 % (42.0-52.0)
[2019-07-17 06:39] LABS: CALCIUM 8.7 mg/dL (8.4-10.2); CREATININE, serum 0.79 (0.66-1.25); POTASSIUM 4.5 mmol/L (3.4-5.0)
[2019-07-18] VITALS (148 sets, daily range): BP systolic 104–147; BP diastolic 59–88; PULSE 64–68; TEMP 97.5–98.7; O2SAT 68–98
[2019-07-18 06:03] LABS: BASO # 0.1 (0.0-0.2); BASO % 0.9 % (0.0-2.0); EOS # 0.1 (0.0-0.7); EOS % 1.5 % (0-4.0); GRAN # 5.7 (1.4-6.5); GRAN % 73.1 % (42.2-75.2); HEMOGLOBIN 10.2 g/dl (13.5-18.0); LYMPH # 1.1 (1.2-3.4); LYMPH % 14.3 % (20.0-51.0); MEAN CELL VOLUME 88 fl (80.0-100.0); MEAN CORPUSCULAR HEMOGLOBIN 29 pg (27.0-31.0); MEAN CORPUSCULAR HGB CONC 32 g/dl (33.0-37.0); MEAN PLATELET VOLUME 10.2 fl (7.4-10.4); MONO # 0.8 (0.1-0.6); MONO % 9.7 % (1.7-9.3); PLATELET COUNT 218 K/mm3 (130-400); RED BLOOD COUNT 3.58 M/mm3 (4.20-5.60); REDCELL DISTRIBUTION WIDTH-CV 14.1 % (11.5-14.5)
[2019-07-18 06:13] LABS: CALCIUM 8.9 mg/dL (8.4-10.2); CREATININE, serum 0.97 (0.66-1.25); POTASSIUM 3.5 mmol/L (3.4-5.0)
[2019-07-18 06:29] LABS: HEMATOCRIT 31.6 % (42.0-52.0)
--- NOTE | 2019-07-18 14:23 | NUR ---
Printed Xarelto educational material provided by pharmacist
[2019-07-18] MEDS ORDERED: XARELTO15 MG PO (14:24)
[2019-07-18] MEDS ORDERED: XARELTO20 MG PO (14:24)
[2019-07-18] MEDS ORDERED: LOVENOX 8080 MG/0.8 SQ (19:34)
[2019-07-18] MEDS ORDERED: COUMADIN 5MG5 MG/TAB PO (19:34)
== END 2019-07-18 15:32 | disposition home or self-care (01) | DRG 175 ==
LOC: COL.ER 17:57 → ICU 19:54
PROVIDERS: Family Medicine; Nurse Practitioner Family; Physician Assistant
DX: I26.99 Other pulmonary embolism without acute cor pulmonale (principal); I21.A1 Myocardial infarction type 2; J96.01 Acute respiratory failure with hypoxia; E87.2 Acidosis; I82.411 Acute embolism and thrombosis of right femoral vein; I82.4Z1 Acute embolism and thrombosis of unspecified deep veins of right distal lower extremity; F03.90 Unspecified dementia, unspecified severity, without behavioral disturbance, psychotic disturbance, mood disturbance, and anxiety; E78.5 Hyperlipidemia, unspecified; M10.9 Gout, unspecified; I10 Essential (primary) hypertension; J44.9 Chronic obstructive pulmonary disease, unspecified; N40.0 Benign prostatic hyperplasia without lower urinary tract symptoms; M17.0 Bilateral primary osteoarthritis of knee; M47.9 Spondylosis, unspecified; M19.072 Primary osteoarthritis, left ankle and foot; M19.071 Primary osteoarthritis, right ankle and foot; D64.9 Anemia, unspecified; E03.9 Hypothyroidism, unspecified; R91.1 Solitary pulmonary nodule; Z90.49 Acquired absence of other specified parts of digestive tract; Z85.038 Personal history of other malignant neoplasm of large intestine; Z86.73 Personal history of transient ischemic attack (TIA), and cerebral infarction without residual deficits; Z87.891 Personal history of nicotine dependence; Z88.0 Allergy status to penicillin; Z92.3 Personal history of irradiation
CPT/HCPCS: 99233-AI; 99239; J1644; J7030; Q9967

== ENCOUNTER 2020-08-19 09:34 | Day surgery (SDC) | payer MEDICARE ==
[~2020-08-19] VITALS: Ht 185.4 cm; Wt 95.0 kg
[~2020-08-19 09:34] MED LIST changes: +COUMADIN 5MG5 MG/TAB PO; +FLOVENT 110MCG7.9 GM IH; +LOVENOX 8080 MG/0.8 SQ; +NAMENDA 10MG TA10 MG PO; +PEPCID 20MG TAB20 MG PO; +TYLENOL 325MG325 MG PO; +XARELTO15 MG PO; +XARELTO20 MG PO
[2020-08-19 10:05] VITALS: BP 131/91; PULSE 74; TEMP 98.4
[2020-08-19 10:50] VITALS: BP 127/85; PULSE 67
--- NOTE | 2020-08-19 10:50 | NUR ---
Pt to GI bay 7 via cart from [facility]. Pt ambulates to recliner with stand by assitance. Warm blankets provided. Pt denies pain or nausea. Pt denies need for food and drink at this time. Alec continue to monitor.
[2020-08-19 11:05] VITALS: BP 122/80; PULSE 65
--- NOTE | 2020-08-19 11:05 | NUR ---
Pt continues to rest. Denies needs. Call light within reach.
[2020-08-19 11:20] VITALS: BP 118/80; PULSE 64
--- NOTE | 2020-08-19 11:20 | NUR ---
Pt continues to rest. Denies needs. Call light within reach.
--- NOTE | 2020-08-19 11:25 | NUR ---
Discharge instructions reviewed. Pt voices understanding. IV site discontinued with all parts intact. Pt up to dress. Call light within reach.
--- NOTE | 2020-08-19 11:45 | NUR ---
Pt escorted to private car via wheel chair. Pt accompanied home by his daughter in law.
== END 2020-08-19 11:53 | disposition home or self-care (01) ==
LOC: SDCO 09:34
DX: Z12.11 Encounter for screening for malignant neoplasm of colon (principal); K21.00 Gastro-esophageal reflux disease with esophagitis, without bleeding; J44.9 Chronic obstructive pulmonary disease, unspecified; I10 Essential (primary) hypertension; E78.5 Hyperlipidemia, unspecified; G89.29 Other chronic pain; M19.90 Unspecified osteoarthritis, unspecified site; E03.9 Hypothyroidism, unspecified; Z20.822 Contact with and (suspected) exposure to COVID-19; Z85.038 Personal history of other malignant neoplasm of large intestine; Z98.0 Intestinal bypass and anastomosis status; Z88.0 Allergy status to penicillin; Z87.891 Personal history of nicotine dependence; Z86.73 Personal history of transient ischemic attack (TIA), and cerebral infarction without residual deficits
CPT/HCPCS: J2704; J7120

== ENCOUNTER 2020-12-09 08:34 | Day surgery (SDC) | payer MEDICARE ==
[~2020-12-09] VITALS: Ht 185.4 cm; Wt 93.2 kg
[2020-12-09] MEDS ORDERED: COZAAR100 MG PO (09:49)
[2020-12-09] MEDS ORDERED: FLOVENT 110MCG7.9 GM IH (09:50)
[2020-12-09] MEDS ORDERED: LASIX 20MG TABL20 MG PO (09:50)
[2020-12-09 09:51] VITALS: BP 137/95; PULSE 76; TEMP 97
[2020-12-09 10:20] VITALS: BP 122/70; PULSE 69
--- NOTE | 2020-12-09 10:20 | NUR ---
Pt to GI bay 6 via cart from [facility]. Pt drowsy, but awake. Pt ambulates to recliner with stand by assistance. Warm blanket provided. Coffee and muffin given per pt request. Pt denies pain or nausea. and daughter in law brought to room. Call light within reach.
[2020-12-09 10:35] VITALS: BP 119/68; PULSE 72
--- NOTE | 2020-12-09 10:35 | NUR ---
Pt continues to rest. Denies needs. Call light within reach.
[2020-12-09 10:50] VITALS: BP 124/79; PULSE 66
--- NOTE | 2020-12-09 10:50 | NUR ---
Discharge instructions reviewed. Pt voices understanding. IV site discontinued with all parts intact. Pt up to dress with nurse assist. Call light within reach.
--- NOTE | 2020-12-09 11:05 | NUR ---
Pt escorted to private car via wheel chair. Pt accompanied home by his and daughter in law.
== END 2020-12-09 11:05 | disposition home or self-care (01) ==
LOC: SDCO 08:34
DX: Z12.11 Encounter for screening for malignant neoplasm of colon (principal); K21.9 Gastro-esophageal reflux disease without esophagitis; H81.10 Benign paroxysmal vertigo, unspecified ear; G89.29 Other chronic pain; M19.90 Unspecified osteoarthritis, unspecified site; M10.9 Gout, unspecified; E78.5 Hyperlipidemia, unspecified; J44.9 Chronic obstructive pulmonary disease, unspecified; I10 Essential (primary) hypertension; Q21.0 Ventricular septal defect; F03.90 Unspecified dementia, unspecified severity, without behavioral disturbance, psychotic disturbance, mood disturbance, and anxiety; Z88.0 Allergy status to penicillin; Z85.038 Personal history of other malignant neoplasm of large intestine; Z86.73 Personal history of transient ischemic attack (TIA), and cerebral infarction without residual deficits; Z20.822 Contact with and (suspected) exposure to COVID-19; Z90.89 Acquired absence of other organs
CPT/HCPCS: J2704; J7030

== ENCOUNTER 2021-01-21 19:08 | Inpatient (IN) | payer MEDICARE ==
[~2021-01-21] VITALS: Ht 182.9 cm; Wt 94.0 kg
[~2021-01-21 19:08] MED LIST changes: +LASIX 20MG TABL20 MG PO
[2021-01-21 19:36] LABS: BASO % 0.5 % (0.0-2.0); EOS % 0.1 % (0-4.0); GRAN # 6.4 (1.4-6.5); GRAN % 81.6 % (42.2-75.2); HEMATOCRIT 45.6 % (42.0-52.0); HEMOGLOBIN 15.8 g/dl (13.5-18.0); LYMPH % 13.4 % (20.0-51.0); MEAN CELL VOLUME 93 fl (80.0-100.0); MEAN CORPUSCULAR HEMOGLOBIN 32 pg (27.0-31.0); MEAN CORPUSCULAR HGB CONC 35 g/dl (33.0-37.0); MEAN PLATELET VOLUME 10.3 fl (7.4-10.4); MONO # 0.3 (0.1-0.6); PLATELET COUNT 182 K/mm3 (130-400); RED BLOOD COUNT 4.93 M/mm3 (4.20-5.60); REDCELL DISTRIBUTION WIDTH-CV 12.7 % (11.5-14.5)
[2021-01-21 19:37] LABS: COLLECTION METHOD CLEAN CATCH
[2021-01-21 19:46] LABS: MUCOUS Present /lpf; PH 5 (5-8); SQUAMOUS EPITHELIAL 0-2 /hpf; URINE APPEARANCE Clear; URINE BACTERIA None Seen /hpf; URINE BILIRUBIN Negative (NEGATIVE); URINE BLOOD Negative (NEGATIVE); URINE COLOR Amber; URINE GLUCOSE Negative (NEGATIVE); URINE KETONE 1+ (NEGATIVE); URINE LEUKOCYTE ESTERASE Negative (NEGATIVE); URINE NITRATE Negative (NEGATIVE); URINE PROTEIN(semi-quant) 1+ (NEGATIVE); URINE RBC 0-2 /hpf; URINE UROBILINOGEN Negative (NEGATIVE)
[2021-01-21 19:48] LABS: ALANINE AMINOTRANSFERASE 22 U/L (4-49); ALBUMIN 4.4 gm/dL (3.5-5.0); ALKALINE PHOSPHATASE 66 U/L (50-136); ANION GAP 10 mmol/L (7-16); AST,SGOT 28 U/L (15-37); BILIRUBIN,TOTAL 1.8 mg/dL (0.0-1.0); BLOOD UREA NITROGEN 21 mg/dL (9-20); CALCIUM 9.5 mg/dL (8.4-10.2); CARBON DIOXIDE 24 mmol/L (22-30); CHLORIDE 104 mmol/L (98-107); CREATININE, serum 0.92 (0.66-1.25); GLUCOSE 125 mg/dL (74-106); POTASSIUM 4.4 mmol/L (3.4-5.0); SODIUM 138 mmol/L (137-145); TOTAL PROTEIN 7.7 gm/dL (6.4-8.2)
[2021-01-21 20:08] LABS: C-REACTIVE PROTEIN < 0.5 mg/dL (0.0-0.9)
[2021-01-21] MEDS ORDERED: PRAVACHOL 20MG20 MG PO (22:51)
[2021-01-21 23:18] VITALS: BP 130/60; PULSE 57; TEMP 98.5
[2021-01-22] VITALS (8 sets, daily range): BP systolic 101–148; BP diastolic 46–77; PULSE 50–70; TEMP 97.8–98.7
[2021-01-22 10:57] LABS: BASO # 0.1 (0.0-0.2); BASO % 0.8 % (0.0-2.0); EOS # 0.1 (0.0-0.7); EOS % 0.5 % (0-4.0); GRAN # 7.1 (1.4-6.5); GRAN % 77.4 % (42.2-75.2); HEMATOCRIT 41.4 % (42.0-52.0); HEMOGLOBIN 14.2 g/dl (13.5-18.0); MEAN CELL VOLUME 94 fl (80.0-100.0); MEAN CORPUSCULAR HEMOGLOBIN 32 pg (27.0-31.0); MEAN CORPUSCULAR HGB CONC 34 g/dl (33.0-37.0); MONO # 0.9 (0.1-0.6); PLATELET COUNT 176 K/mm3 (130-400); RED BLOOD COUNT 4.41 M/mm3 (4.20-5.60); REDCELL DISTRIBUTION WIDTH-CV 12.7 % (11.5-14.5)
[2021-01-22 11:12] LABS: CALCIUM 9.2 mg/dL (8.4-10.2); CREATININE, serum 0.83 (0.66-1.25); POTASSIUM 3.6 mmol/L (3.4-5.0)
[2021-01-23 03:20] VITALS: BP 113/56; PULSE 55; TEMP 98.6
[2021-01-23 06:22] LABS: BASO # 0.1 (0.0-0.2); BASO % 1.1 % (0.0-2.0); EOS # 0.2 (0.0-0.7); EOS % 2.5 % (0-4.0); GRAN # 5.5 (1.4-6.5); GRAN % 69.3 % (42.2-75.2); HEMATOCRIT 40.9 % (42.0-52.0); HEMOGLOBIN 13.9 g/dl (13.5-18.0); LYMPH # 1.4 (1.2-3.4); MEAN CELL VOLUME 95 fl (80.0-100.0); MEAN CORPUSCULAR HEMOGLOBIN 32 pg (27.0-31.0); MEAN CORPUSCULAR HGB CONC 34 g/dl (33.0-37.0); MEAN PLATELET VOLUME 10.1 fl (7.4-10.4); MONO # 0.8 (0.1-0.6); MONO % 9.8 % (1.7-9.3); PLATELET COUNT 146 K/mm3 (130-400); RED BLOOD COUNT 4.29 M/mm3 (4.20-5.60); REDCELL DISTRIBUTION WIDTH-CV 13.1 % (11.5-14.5)
[2021-01-23 06:36] LABS: CREATININE, serum 0.97 (0.66-1.25); POTASSIUM 3.6 mmol/L (3.4-5.0)
[2021-01-23 08:25] VITALS: BP 147/40; PULSE 58; TEMP 97.8
[2021-01-23 11:10] VITALS: BP 187/97; PULSE 65; TEMP 97.8
== END 2021-01-23 14:39 | disposition home or self-care (01) | DRG 103 ==
LOC: COL.ER 19:08 → MEDICAL 21:07
PROVIDERS: Emergency Medicine; Physician Assistant; Student in an Organized Health Care Education/Training Program; ADMIT Internal Medicine
DX: R51.9 Headache, unspecified (principal); R42 Dizziness and giddiness; M54.2 Cervicalgia; E78.5 Hyperlipidemia, unspecified; I10 Essential (primary) hypertension; N40.0 Benign prostatic hyperplasia without lower urinary tract symptoms; E05.90 Thyrotoxicosis, unspecified without thyrotoxic crisis or storm; J44.9 Chronic obstructive pulmonary disease, unspecified; Z20.828 Contact with and (suspected) exposure to other viral communicable diseases; M10.9 Gout, unspecified; Z96.652 Presence of left artificial knee joint; Z87.891 Personal history of nicotine dependence; Z86.73 Personal history of transient ischemic attack (TIA), and cerebral infarction without residual deficits; Z86.718 Personal history of other venous thrombosis and embolism; Z86.711 Personal history of pulmonary embolism; Z90.49 Acquired absence of other specified parts of digestive tract; Z85.038 Personal history of other malignant neoplasm of large intestine; Z90.89 Acquired absence of other organs
CPT/HCPCS: 99223-AI; 99232-AI; 99239; J0133; J0360; J7030; J7050

== ENCOUNTER 2022-01-23 13:01 | Inpatient (IN) | payer MEDICARE ==
[2022-01-23] VITALS (127 sets, daily range): BP systolic 122; BP diastolic 92; PULSE 71; TEMP 97.9; O2SAT 89–99
[~2022-01-23] VITALS: Ht 182.9 cm; Wt 103.6 kg
[~2022-01-23 13:01] MED LIST changes: +B-12 250 MCG PO; -B-121000 MCG PO; +NORVASC 5MG5 MG/TAB PO; -NORVASC2.5 MG PO; +PRAVACHOL 20MG20 MG PO; -VITAMIN D 1001000 IU PO; +VITAMIN D31000 IU PO
[2022-01-23 14:14] LABS: BASO # 0.2 K/mm3 (0.0-0.2); BASO % 1.2 % (0.0-2.0); EOS # 0.5 K/mm3 (0.0-0.7); EOS % 3.4 % (0.0-4.0); GRAN % 63.5 % (42.2-75.2); HEMATOCRIT 44.8 % (42.0-52.0); HEMOGLOBIN 14.7 g/dl (13.5-18.0); LYMPH # 3.2 K/mm3 (1.2-3.4); LYMPH % 22.6 % (20.0-51.0); MEAN CELL VOLUME 91 fl (80.0-100.0); MEAN CORPUSCULAR HEMOGLOBIN 30 pg (27-31); MEAN CORPUSCULAR HGB CONC 33 g/dl (33.0-37.0); MEAN PLATELET VOLUME 10.6 fl (7.4-10.4); MONO # 1.3 K/mm3 (0.1-0.6); MONO % 8.9 % (1.7-9.3); PLATELET COUNT 279 K/mm3 (130-400); RED BLOOD COUNT 4.92 M/mm3 (4.20-5.60); REDCELL DISTRIBUTION WIDTH-CV 14.6 % (11.5-14.5)
[2022-01-23] MEDS ORDERED: ASPIRIN 81M81 MG/TA2 PO (14:22)
[2022-01-23] MEDS ORDERED: VOLTAREN GEL 1%1 TU TOP (14:24)
[2022-01-23 14:25] LABS: ALBUMIN 3.8 gm/dL (3.4-4.8); BILIRUBIN,TOTAL 0.9 mg/dL (0.2-1.2); CALCIUM 9.4 mg/dL (8.4-10.2); CREATININE, serum 1.61 mg/dL (0.72-1.25); POTASSIUM 3.7 mmol/L (3.5-4.5); TOTAL PROTEIN 7.9 gm/dL (6.2-8.1)
[2022-01-23 14:26] LABS: ARTERIAL BLD GAS O2 SATURATION 98.1 % (92-100); ARTERIAL BLOOD GAS BASE EXCESS -3.3 (-2-2); ARTERIAL BLOOD GAS PCO2 31.6 mmHg (35-45); ARTERIAL BLOOD GAS PO2 99.2 mmHg (80-100); ARTERIAL BLOOD GAS pH 7.42 (7.35-7.45)
[2022-01-23] MEDS ORDERED: TRICOR145 MG PO (14:26)
[2022-01-23] MEDS ORDERED: EPA FISH OIL1 SGL PO (14:27)
[2022-01-23] MEDS ORDERED: NEURONTIN100 MG/CAP PO (14:29)
[2022-01-23] MEDS ORDERED: KEPPRA 500MG500 MG PO (14:30)
[2022-01-23 14:31] LABS: TROPONIN-I 0.017 ng/mL (0.00-0.033)
[2022-01-23] MEDS ORDERED: K-DUR 10 MEQ T10 MEQ PO (14:47)
[2022-01-23] MEDS ORDERED: PRILOSEC 20MG20 MG PO (14:47)
[2022-01-23 16:42] LABS: INR 1.3 (0.8-3.0); PROTHROMBIN TIME 14.4 SECONDS (9.7-12.8)
[2022-01-23 16:45] LABS: PARTIAL THROMBOPLASTIN TIME 35.2 SECONDS (26.0-37.0)
--- NOTE | 2022-01-23 21:30 | NUR ---
Received report from ED nurseDerek.
--- NOTE | 2022-01-23 21:48 | NUR ---
Patient arrives to ICU room 2 via ED stretcher. Patient is accompanied by his son, David. Patient arrives receiving 7L oxygen via non-rebreather mask. All initial vitals within normal limits. Patient denies pain or discomfort. Arrives receiving heparin drip at 1800 units/hr. Non-rebreather mask exchanged for regular oxymask.
[2022-01-23 23:16] LABS: COLLECTION METHOD CLEAN CATCH
[2022-01-23 23:22] LABS: MUCOUS Present (NOT PRESENT); PH 5 (5-8); SQUAMOUS EPITHELIAL 0-2 /hpf (0-10); URINE APPEARANCE Hazy (CLEAR/HAZY); URINE BACTERIA None Seen /hpf (NONE SEEN); URINE BILIRUBIN Negative (NEGATIVE); URINE BLOOD Negative (NEGATIVE); URINE COLOR Amber (YELLOW); URINE GLUCOSE Negative (NEGATIVE); URINE KETONE Negative (NEGATIVE); URINE LEUKOCYTE ESTERASE Negative (NEGATIVE); URINE NITRATE Negative (NEGATIVE); URINE PROTEIN(semi-quant) Negative (NEGATIVE); URINE UROBILINOGEN Negative (NEGATIVE)
--- NOTE | 2022-01-23 23:35 | NUR ---
Patient's belongings include a walker, a walking boot, and street clothes. He is currently wearing his bottom dentures; he denies having other dentures, partials or plates. Patient has his glasses at the bedside. He reports wearing bilateral hearing aids but that they are not here at this time. He denies having any removable jewelry on his person. Patient's son, David, took home patient's cell phone and wallet.
[2022-01-24] VITALS (1386 sets, daily range): BP systolic 115–137; BP diastolic 66–90; PULSE 61–76; TEMP 97.4–98.9; O2SAT 84–97
[2022-01-24 05:45] LABS: HEMATOCRIT 38.3 % (42.0-52.0); MEAN CELL VOLUME 91 fl (80.0-100.0); MEAN CORPUSCULAR HEMOGLOBIN 29 pg (27-31); MEAN CORPUSCULAR HGB CONC 32 g/dl (33.0-37.0); MEAN PLATELET VOLUME 10.7 fl (7.4-10.4); PLATELET COUNT 187 K/mm3 (130-400); RED BLOOD COUNT 4.19 M/mm3 (4.20-5.60); REDCELL DISTRIBUTION WIDTH-CV 14.7 % (11.5-14.5)
[2022-01-24 05:54] LABS: CALCIUM 8.4 mg/dL (8.4-10.2); CREATININE, serum 1.19 mg/dL (0.72-1.25); MAGNESIUM 2.1 mg/dL (1.6-2.6); POTASSIUM 4.5 mmol/L (3.5-4.5)
[2022-01-24 05:56] LABS: HEMOGLOBIN 12.3 g/dl (13.5-18.0)
[2022-01-24 06:58] LABS: LYMPHOCYTE 10 % (20.0-51.0); NEUTROPHILS 90 % (42.0-75.2); PLATELET ESTIMATE NORMAL (NORMAL)
--- NOTE | 2022-01-24 07:00 | NUR ---
BEDSIDE REPORT RECEIVED FROM PRESTON TEMPLE. HEPARIN GTT INFUSING; NEXT HEPXA T 0800. PT ALERT AND ORIENTED THIS AM. WEARS 7L NC. NO S/S DISCOMFORT AND OFFERES NO COMPLAINTS.
--- NOTE | 2022-01-24 07:57 | NUR ---
Report given to PRESTON Mackey.
--- NOTE | 2022-01-24 09:11 | NUR ---
Senior Statistician met with patient to discuss discharge planning. Patient lives outside of [place] and reports he lives alone as his passed about a year ago. Patient sees Dr. Guevara for primary care but is unhappy with her as a provider. Patient also goes to the [facility] where he gets most of his medications filled. Patient reports his granddaugher, Lilia helps him manage and organize his medicaitons. Patient uses a walker for ambulation and advised he used to use a cane before he "messed up" his ankle. Patient does not normally wear oxygen but is currently requiring it. Patient states he trys to be independent at home with ADLS and has had [facility] in the past but did not have the best experience. Patient is not sure if he has DPOA-HC, but he stated if he did it would be his son, David (ph#[phone]). Patient is and only has one child, David. SW contacted patient's son, David to check in and advised that SW is here to follow for any discharge planning needs. SW spoke with Hospitalist about PT/OT. Patient cannot work with therapy today, but Hospitalist will order it once appropriate.
--- NOTE | 2022-01-24 11:28 | NUR ---
Yenifer: No holiness preference Situation: Environmental Engineering Intern stopped by room on rounds Background: PT was resting and content Assessment: PT was getting tests done and appreciated the visit Recommendation: chemical operations specialist will follow up as needed
--- NOTE | 2022-01-24 20:08 | NUR ---
Assessment complete and charted. Patient alert and orientated. Oxygen flow increased to 11 liters by respiratory for oxygen saturations 89-90%. Patient denies shortness of breath at this time. call light in reach.
[2022-01-25] VITALS (1171 sets, daily range): BP systolic 104–136; BP diastolic 60–81; PULSE 64–72; TEMP 97.6–98.4; O2SAT 76–100
--- NOTE | 2022-01-25 06:13 | NUR ---
Uneventful night. Remains on 11 liters of oxygen. Denies needs this AM. Call light in reach.
[2022-01-25 06:34] LABS: CALCIUM 8.7 mg/dL (8.4-10.2); CREATININE, serum 1.18 mg/dL (0.72-1.25); MAGNESIUM 2.2 mg/dL (1.6-2.6); POTASSIUM 4.7 mmol/L (3.5-4.5)
--- NOTE | 2022-01-25 07:11 | NUR ---
Report given to PRESTON Mackey
--- NOTE | 2022-01-25 07:23 | NUR ---
BEDSIDE REPORT RECEIVED FROM PRESTON BOTELLO. PT ALERT AND ORIENTED THIS AM. WEARS 11L O2 VIA HFNC. PT OFFERS NO COMPLAINTS.
--- NOTE | 2022-01-25 20:25 | NUR ---
BEDSIDE SHIFT REPORT RECEIVED FROM PRESTON JARVIS. PT CURRENTLY RESTING IN BED. NO C/O PAIN OR DISCOMFORT AT THIS TIME. VSS, NO ACUTE CHANGES NOTED.
[2022-01-26] VITALS (830 sets, daily range): BP systolic 122–158; BP diastolic 63–117; PULSE 50–94; TEMP 97.4–98; O2SAT 75–99
[2022-01-26 05:50] LABS: HEMOGLOBIN 11.2 g/dl (13.5-18.0); MEAN CELL VOLUME 91 fl (80.0-100.0); MEAN CORPUSCULAR HEMOGLOBIN 30 pg (27-31); MEAN CORPUSCULAR HGB CONC 33 g/dl (33.0-37.0); MEAN PLATELET VOLUME 10.5 fl (7.4-10.4); PLATELET COUNT 177 K/mm3 (130-400); RED BLOOD COUNT 3.78 M/mm3 (4.20-5.60); REDCELL DISTRIBUTION WIDTH-CV 14.6 % (11.5-14.5)
[2022-01-26 05:55] LABS: HEMATOCRIT 34.3 % (42.0-52.0)
[2022-01-26 06:06] LABS: CALCIUM 8.6 mg/dL (8.4-10.2); CREATININE, serum 1.05 mg/dL (0.72-1.25); POTASSIUM 4.6 mmol/L (3.5-4.5)
[2022-01-26 06:24] LABS: LYMPHOCYTE 4 % (20.0-51.0); NEUTROPHILS 95 % (42.0-75.2)
[2022-01-26 06:26] LABS: HYPOCHROMIA 1+; PLATELET ESTIMATE NORMAL (NORMAL)
--- NOTE | 2022-01-26 08:00 | NUR ---
SHIFT REPORT RECEIVED. ASSESSMENT FINDING B/L LUNG SOUNDS WITH WHEEZING IN UPPER AND LOWER LOBES WITH DECREASED LOWER LOBE SOUNDS. LEFT LOWER FOOT WITH +3 PITTING, RIGHT FOOT WITH +2 PITTING. PEDAL PULSES FOUND WITH DOPPLER. PT WITH GENERALIZED WEAKNESS. PT REPORTS THAT LOWER LEGS FEEL "UNCOMFPRTABLE" BUT DENIES PAIN. PT HAD IVC PROCEDURE SHORTLY AFTER 8AM. PT REMAINED FLAT FOR 1HR AFTER RETURNING FROM PROCEDURE. PT WAS BORDERLINE BRADYCARDIA AFTER RETURNING FROM PROCEDURE. HOSPITALIST NOTIFIED AND CARDIOLOGY CONSULTED.
--- NOTE | 2022-01-26 08:29 | NUR ---
See merge for all medication, assessment, intervention, and vital sign times.
--- NOTE | 2022-01-26 10:43 | NUR ---
NOTIFIED RT THAT ECG ORDER HAS BEEN PLACED
--- NOTE | 2022-01-26 11:50 | NUR ---
SPOKE WITH HOSPITALIST, PT OK TO HAVE REGULAR DIET
--- NOTE | 2022-01-26 13:29 | NUR ---
SPOKE WITH PT'S SON ORLANDO [phone], UPDATED HIM ABOUT PT STSTUS. PT DOING WELL POST IVC PROCEDURE. PT HAD BED BATH AND HYGIENE DONE AND IS COMFORTABLE IN BED. SON STATED HE WILL BE BY TO VISIT AFTER WORK TODAY.
--- NOTE | 2022-01-26 15:43 | NUR ---
Finance Specialist followed up with patient to review discharge plan. SW discussed post acute rehab, which patient is agreeable to. Patient has been to [facility] before and this would be his first preference. Patient's second preference would be [facility]. SW contacted both facilities and faxed referrals. SW contacted patient's son, David with the above update and he is in agreement. Patient to transfer to the medical floor. Discharge Plan: SNF, 1) [facility] 2) [facility]
--- NOTE | 2022-01-26 17:26 | NUR ---
PATIENT REPORT AND HAND OFF GIVEN TO PRESTON FONTENOT.
--- NOTE | 2022-01-26 18:07 | NUR ---
PT ADMITTED TO MEDICAL UNIT. MED REC UPDATED. ORIENTED PT TO ROOM. UPDATED ON POC. WILL PASS ALONG REPORT TO ONCOMING RN.
--- NOTE | 2022-01-26 19:43 | NUR ---
Initial shift assessment done- denies pain at this time, right groin site with gauze dry and intact/soft.No drainage. PICC to right upper arm- IV fluids of NS at 60cc/hr, has bilateral lower extremity edema,02 at 5L/nc high flow
[2022-01-27] VITALS (559 sets, daily range): BP systolic 119–147; BP diastolic 63–88; PULSE 56–59; TEMP 97.7–98.2; O2SAT 77–100
--- NOTE | 2022-01-27 05:14 | NUR ---
Quiet night-- VSS did get an extra respiratory treatment during the night per pts requests-states he was just "coughing too much" and the treatments help.
--- NOTE | 2022-01-27 07:44 | NUR ---
Contacted by aid stating PT O2 sat at 75 % with his 5L O2 high flow NC. RT and this nurse checking patient. O2 increased and waiting for response.
--- NOTE | 2022-01-27 07:50 | NUR ---
RT starting Airvo.
--- NOTE | 2022-01-27 07:55 | NUR ---
TOLD PT SPO2 75% ON 6 LPM HFNC. INCREASEC TO 15 LPM SPO2 INCREASED TO 80%. PLACED ON AIRVO 60L 92%. SP02 96%. RN BESIDE.
--- NOTE | 2022-01-27 07:59 | NUR ---
Right now with airvo 60L and 92%m o2
--- NOTE | 2022-01-27 08:11 | NUR ---
Patient is sitting in bed 45 degress hob. Alert and oriented x 4, complaining of feeling bad. Right now airvo 60L 92% sat. Fluids sttopped as ordered. Assessment completed. Continue monitoring, call light within reach.
--- NOTE | 2022-01-27 09:28 | NUR ---
Report given to Key JOHNSTON ICU to transfer patient to room 2.
--- NOTE | 2022-01-27 09:43 | NUR ---
REPORT RECEIVED FROM PRESTON SHI. PT BEING TRANSFERED FROM MEDICAL FLOOR TO ICU DUE TO INCREASED RESPIRATORY EFFORT. PT WAS ON 5L NC OVERNIGHT; NOW REQUIRING ARIVO AT 50%. HAS BILATERAL PE'S AND DVT'S. PT REPORTS TO JOSE GUADALUPE THAT HE DOES NOT FEEL SOA THIS AM AND IS ABLE TO EAT BREAKFAST.
--- NOTE | 2022-01-27 10:15 | NUR ---
PT ARRIVES TO ICU AT THIS TIME. IS CURRENTLY ON 60L AND 60% VIA AIRVO; SPO2 AT 100%. PT APPEARS TO NOT BE IN DISTRESS. IS ABLE TO ANSWER QUESTIONS WITH EASE. ENZO PICC IN PLACE. NO GTTS OR FLUIDS INFUSING. PT BELONGING BROUGHT FROM MEDICAL FLOOR. PT OFFERS NO COMPLAINTS AT THIS TIME AND LIES SUPINE WITH HOB ELEVATED.
--- NOTE | 2022-01-27 10:49 | NUR ---
Patient was taken to [facility] [place] 1015[facility].
[2022-01-28] VITALS (821 sets, daily range): BP systolic 137–160; BP diastolic 67–91; PULSE 39–71; TEMP 97.6–98.3; O2SAT 77–100
[2022-01-28 05:34] LABS: HEMOGLOBIN 10.4 g/dl (13.5-18.0); MEAN CELL VOLUME 90 fl (80.0-100.0); MEAN CORPUSCULAR HEMOGLOBIN 29 pg (27-31); MEAN CORPUSCULAR HGB CONC 33 g/dl (33.0-37.0); MEAN PLATELET VOLUME 10.1 fl (7.4-10.4); PLATELET COUNT 178 K/mm3 (130-400); RED BLOOD COUNT 3.55 M/mm3 (4.20-5.60); REDCELL DISTRIBUTION WIDTH-CV 14.4 % (11.5-14.5)
[2022-01-28 05:49] LABS: HEMATOCRIT 31.9 % (42.0-52.0)
[2022-01-28 06:06] LABS: CALCIUM 8.3 mg/dL (8.4-10.2); CREATININE, serum 1.02 mg/dL (0.72-1.25); POTASSIUM 4.5 mmol/L (3.5-4.5)
[2022-01-28 06:39] LABS: BAND 3 % (0-10); LYMPHOCYTE 11 % (20.0-51.0); NEUTROPHILS 86 % (42.0-75.2); PLATELET ESTIMATE NORMAL (NORMAL)
--- NOTE | 2022-01-28 07:00 | NUR ---
BEDSIDE REPORT RECEIVED FROM PRESTON ANAND. PT ON AIRVO AT 60L AND 65%. PT ALERT AND ORIENTED. WOULD LIKE TO ORDER BREAKFAST. LIES SUPINE WITH HOB ELEVATED. NO S/S DISCOMFORT. PT OFFERS NO COMPLAINTS. PICC TO ENZO WITH NO GTTS OR FLUIDS INFUSING.
--- NOTE | 2022-01-28 16:19 | NUR ---
PT BEING TRANSFERED TO MEDICAL ROOM 352. REPORT GIVEN TO PRESTON SHI. PT'S SON ORLANDO CALLED AND MADE AWARE ROOM CHANGE. ALL OF PT'S BELONGINGS TRANSFERED TO 352 WITH PATIENT.
--- NOTE | 2022-01-28 16:40 | NUR ---
Patient arrived to the unit by wheelchair. Alert and oriented x 4, bradycardic. 12L O2 High flow nasal cannula. SOB with exertion. Assessment completed. No other needs at this time. Call light within reach.
--- NOTE | 2022-01-28 18:15 | NUR ---
Patient is resting in bed with family at the bedside. Stable and waiting for dinner. Report will be given to night RN.
--- NOTE | 2022-01-28 20:30 | NUR ---
Initial shift assessment done- states feeling ok tonight-- sits at the edge of bed to void per urinal,, VSS, o2 sats 98% on 11L/high flow, respiratory therapy decreased to 9L/high flow at this time,, PICC to ENZO , has gauzr intact to right groin site- no drainage.
[2022-01-29 03:11] VITALS: BP 133/72; PULSE 49; TEMP 98.1
--- NOTE | 2022-01-29 04:49 | NUR ---
Quiet night- resting quietly, o2 at 9L/high flow, sats 94-97%, voiding goodamounts yobani urine per urinal
[2022-01-29 08:00] VITALS: BP 155/70; PULSE 40; TEMP 97.8
--- NOTE | 2022-01-29 11:00 | NUR ---
Pt was pretty sleepy this morning. During full assessment it was noted that pt had not had breakfast ordered. Ordered breakfast for him at that time. Also had meals switched to house tray after discussing with him. Pt stating that he is not having much if any pain. O2 is mid to upper 90s. Turned O2 down to 7L. Pt is sitting up on the side of the bed eating breakfast. Right side lung had exp wheezes. Had pt take a deep breath and cough. Lung sounds did clear up. Pt denies any needs, will continue to monitor
[2022-01-29 11:10] VITALS: BP 131/61; PULSE 79; TEMP 97.3
--- NOTE | 2022-01-29 12:24 | NUR ---
Field Superintendent faxed clinical updates to [facility].
[2022-01-29 16:05] VITALS: BP 150/52; PULSE 58; TEMP 97.7
--- NOTE | 2022-01-29 17:59 | NUR ---
Pt has continued to do well throughout the day with little to no complaints. Continue to try and wean off O2. Pt is now on 5L per NC. Tolerating general diet with no complaints. Call light within reach, will continue to monitor
[2022-01-29 19:49] VITALS: BP 149/67; PULSE 59; TEMP 97.6
[2022-01-29 23:43] VITALS: BP 153/73; PULSE 50; TEMP 97.6
[2022-01-30 04:15] VITALS: BP 158/75; PULSE 58; TEMP 98.1
--- NOTE | 2022-01-30 06:58 | NUR ---
pt weaned to 5L O2 per HFNC this am, required as high as 9L this shift. pt c/o cough during the noc, RT provided prn breathing tx, but not helping much with cough, will ask for cough meds this morning. PICC patent/secure to ENZO. no labs ordered for this am.
[2022-01-30 07:06] VITALS: BP 144/69; PULSE 53; TEMP 97.4
--- NOTE | 2022-01-30 09:49 | NUR ---
PT SITTING UP IN BED. MORNING MEDICATIONS GIVEN. SHIFT ASSESSMENT COMPLETED. PT DENIES ANY PAIN OR NEEDS. SWELLING NOTED TO BLE WITH 3+ PITTING EDEMA. PICC LINE FLUSHES WITH GOOD BLOOD RETURN. CURRENTLY ON 4.5L VIA NC. WILL CONTINUE TO MONITOR.
[2022-01-30 12:00] VITALS: BP 136/71; PULSE 63
--- NOTE | 2022-01-30 13:28 | NUR ---
BRENDA staffed with the PA. The patient may be able to discharge in the next 24-48 hours. BRENDA notified and faxed updates to [facility] and [facility]. They are both still reviewing the patient's information. Wilfredo, at [facility], reports that they do have active COVID on their rehab unit. BRENDA met with the patient to review discharge plan. He confirms first preference is [facility]. BRENDA presented and read the IM form outloud to him. The patient verbalized understanding and signed the form. BRENDA provided him with a copy. BRENDA contacted and updated the patient's son, David. David is in agreement to the plan.
--- NOTE | 2022-01-30 13:49 | NUR ---
Akua, at [facility], reports that they are able to accept the patient for a skilled stay.
[2022-01-30 16:00] VITALS: BP 124/69; PULSE 62
[2022-01-30 19:48] VITALS: BP 127/68; PULSE 69; TEMP 98
--- NOTE | 2022-01-30 20:30 | NUR ---
Initial shift assessment done- VSS, denies pain except for left foot chronic soreness, denies SOB, 02 at 3.5L/nc, R/PICC line, voiding clear yellow urine, denies need for a snack tonight.
[2022-01-31 00:55] VITALS: BP 118/67; PULSE 63; TEMP 98.5
[2022-01-31 04:10] VITALS: BP 123/64; PULSE 65; TEMP 98.7
--- NOTE | 2022-01-31 05:51 | NUR ---
Has been a quiet night- o2 at 3,5L/nc, 92% sats,, no requests, VSS
[2022-01-31 07:07] VITALS: BP 120/72; PULSE 62; TEMP 97.5
--- NOTE | 2022-01-31 08:58 | NUR ---
PT RESTING IN BED. MORNING MEDICATIONS GIVEN. SHIFT ASSESSMENT COMPLETED. PT DENIES ANY PAIN OR NEEDS AT THIS TIME. CURRENTLY ON 4L VIA NC. UPDATED PT ON POC. WILL CONTINUE TO MONITOR.
[2022-01-31] MEDS ORDERED: PREDNISONE20 MG PO (09:48)
[2022-01-31] MEDS ORDERED: ELIQUIS 5MG PO (09:48)
--- NOTE | 2022-01-31 10:09 | NUR ---
Confirmed with Akua at [facility] that they accept this patient and notified her that the patient is ready for discharge. Clinical updates and dc orders faxed. Covid swab requested. SW notified by RT that the patient will need 4L of NC oxygen 18/02. Facility informed.
--- NOTE | 2022-01-31 11:04 | NUR ---
REPORT CALLED TO RN AT [facility].
--- NOTE | 2022-01-31 11:16 | NUR ---
BRENDA faxed negative covid result to Akua at [facility]. 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 Patient's Rn updated. 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 David is excited for his dad to go to [facility]. Discharge plan: [facility] @ 1200
--- NOTE | 2022-01-31 12:34 | NUR ---
PT PERSONAL BELONGINGS PACKED, PT DRESSED AND PREPARED FOR D/C. WAITING FOR TRANSPORTATION TO ARRIVE. WILL D/C PT FROM SYSTEM.
== END 2022-01-31 12:46 | DRG 175 ==
LOC: COL.ER 13:01 → ICU 16:36 → MEDICAL 01-26 17:59 → ICU 01-27 11:24 → MEDICAL 01-28 17:14
PROVIDERS: Internal Medicine; Physician Assistant; ADMIT Internal Medicine
PROC: 02HV33Z Insertion of Infusion Device into Superior Vena Cava, Percutaneous Approach (ICD-10-PCS; 2022-01-24)
PROC: 06H03DZ Insertion of Intraluminal Device into Inferior Vena Cava, Percutaneous Approach (ICD-10-PCS; principal; 2022-01-26)
DX: I26.02 Saddle embolus of pulmonary artery with acute cor pulmonale (principal); J96.01 Acute respiratory failure with hypoxia; N17.9 Acute kidney failure, unspecified; E87.2 Acidosis; I82.453 Acute embolism and thrombosis of peroneal vein, bilateral; I82.433 Acute embolism and thrombosis of popliteal vein, bilateral; I82.411 Acute embolism and thrombosis of right femoral vein; M10.9 Gout, unspecified; J44.9 Chronic obstructive pulmonary disease, unspecified; E03.9 Hypothyroidism, unspecified; N40.0 Benign prostatic hyperplasia without lower urinary tract symptoms; I10 Essential (primary) hypertension; E78.5 Hyperlipidemia, unspecified; D72.829 Elevated white blood cell count, unspecified; M47.892 Other spondylosis, cervical region; Z20.822 Contact with and (suspected) exposure to COVID-19; F03.90 Unspecified dementia, unspecified severity, without behavioral disturbance, psychotic disturbance, mood disturbance, and anxiety; K44.9 Diaphragmatic hernia without obstruction or gangrene; I27.20 Pulmonary hypertension, unspecified; R42 Dizziness and giddiness; Z96.652 Presence of left artificial knee joint; Z88.0 Allergy status to penicillin; Z87.891 Personal history of nicotine dependence; Z90.49 Acquired absence of other specified parts of digestive tract; Z86.718 Personal history of other venous thrombosis and embolism; Z86.711 Personal history of pulmonary embolism; Z87.19 Personal history of other diseases of the digestive system; Z79.890 Hormone replacement therapy; Z79.82 Long term (current) use of aspirin; Z85.038 Personal history of other malignant neoplasm of large intestine; Z86.73 Personal history of transient ischemic attack (TIA), and cerebral infarction without residual deficits; Z23 Encounter for immunization
CPT/HCPCS: 99232-AI; 99233-AI; 99239; C1751; C1769; C1880; C1894; J0461; J1644; J1650; J2920; J7030; J7040; J7512; Q9967

== ENCOUNTER 2023-11-25 18:39 | Emergency (ER) | payer MEDICARE ==
[~2023-11-25] VITALS: Ht 185.4 cm; Wt 99.1 kg
[~2023-11-25 18:39] MED LIST changes: +ASPIRIN 81M81 MG/TA2 PO; +ELIQUIS 5MG PO; +EPA FISH OIL1 SGL PO; +K-DUR 10 MEQ T10 MEQ PO; +KEPPRA 500MG500 MG PO; +NEURONTIN100 MG/CAP PO; +PREDNISONE20 MG PO; +TRICOR145 MG PO; +VOLTAREN GEL 1%1 TU TOP
[2023-11-25 19:23] LABS: BASO # 0.1 K/mm3 (0.0-0.2); BASO % 0.7 % (0.0-2.0); EOS # 0.2 K/mm3 (0.0-0.7); EOS % 1.4 % (0.0-4.0); GRAN # 11.1 K/mm3 (1.4-6.5); GRAN % 83.8 % (42.2-75.2); HEMATOCRIT 49.8 % (42.0-52.0); HEMOGLOBIN 16.8 g/dl (13.5-18.0); LYMPH # 1.1 K/mm3 (1.2-3.4); LYMPH % 8.6 % (20.0-51.0); MEAN CELL VOLUME 93 fl (80.0-100.0); MEAN CORPUSCULAR HEMOGLOBIN 31 pg (27-31); MEAN CORPUSCULAR HGB CONC 34 g/dl (33.0-37.0); MEAN PLATELET VOLUME 10.2 fl (7.4-10.4); MONO # 0.7 K/mm3 (0.1-0.6); PLATELET COUNT 221 K/mm3 (130-400); RED BLOOD COUNT 5.35 M/mm3 (4.20-5.60); REDCELL DISTRIBUTION WIDTH-CV 13.2 % (11.5-14.5)
[2023-11-25] MEDS ORDERED: NS 50 ML IV SCH ×2 (19:29→20:23)
[2023-11-25] MEDS ORDERED: Iodixanol-320 100 ML BOTTLE IV ONE (19:29)
[2023-11-25 19:39] LABS: INR 1.3 (0.8-3.0); PROTHROMBIN TIME 14.4 SECONDS (9.7-12.8)
[2023-11-25 19:43] LABS: ALBUMIN 4.2 g/dL (3.4-4.8); BILIRUBIN,TOTAL 0.9 mg/dL (0.2-1.2); CALCIUM 9.9 mg/dL (8.4-10.2); CREATININE, serum 1.5 mg/dL (0.72-1.25); TOTAL PROTEIN 7.3 g/dl (6.2-8.1)
[2023-11-25] MEDS ORDERED: Iohexol 350 - 100 ML VIAL IV ONE (20:23)
[2023-11-25] MEDS ORDERED: Ondansetron 4 MG/2 ML VIAL IV ONE (20:42)
[2023-11-25] MEDS ORDERED: fentaNYL 50 MCG/ML 2 ML VIAL IV ONE (20:45)
[2023-11-25] MEDS ORDERED: HYDROmorphone 0.5 MG/0.5 ML SYRINGE IV ONE (21:30)
[2023-11-26 00:07] VITALS: BP 138/88; PULSE 58; TEMP 98.6
[2023-11-28] MEDS ORDERED: ROXICODONE 55 MG/TAB PO (12:46)
[2023-11-28] MEDS ORDERED: TYLENOL 325MG325 MG PO ×2 (12:47)
[2023-11-28] MEDS ORDERED: ELIQUIS 5MG PO (12:48)
[2023-11-28] MEDS ORDERED: SYNTHROID0.175 MG PO (12:49)
[2023-11-28] MEDS ORDERED: ZYLOPRIM 300MG300 MG PO (12:51)
[2023-11-28] MEDS ORDERED: THERA-D 20002000 IU PO (12:51)
[2023-11-28] MEDS ORDERED: ARICEPT 5MG PO (12:52)
[2023-11-28] MEDS ORDERED: JARDIANCE25 PO (12:52)
[2023-11-28] MEDS ORDERED: ANTIVERT 12.512.5 MG PO (12:57)
[2023-11-28] MEDS ORDERED: B-12 500 MCG PO (12:58)
[2023-11-28] MEDS ORDERED: PRAVACHOL 40MG40 MG PO (12:58)
== END 2023-11-26 00:10 | disposition short-term general hospital (02) ==
LOC: COL.ER 18:39
PROVIDERS: Family Medicine
DX: S12.9XXA Fracture of neck, unspecified, initial encounter (principal); Z86.718 Personal history of other venous thrombosis and embolism; Z79.01 Long term (current) use of anticoagulants; W28.XXXA Contact with powered lawn mower, initial encounter
CPT/HCPCS: J1170; J2405; J3010; Q9967